=== PATIENT | male | born 1965 | race Hispanic/Latino ===

== ENCOUNTER 2018-11-15 10:09 | Outpatient (CLI) | payer BC ==
--- NOTE | 2018-11-15 11:12 | XRay Report ---
RIGHT KNEE, 4 VIEWS INDICATION: RIGHT KNEE PAIN. COMPARISON: None. IMPRESSION: There is moderate medial compartment joint space narrowing and minimal tibial spine spurr ing. There is relative sparing of the lateral compartment and patellofemoral space. No evidence for f racture, bone lesion or large osteochondral defect. Small joint effusion is suspected on the lateral image. Signer Name: Jose Ramon Rodriguez Jr, MD Signed: 11/15/2018 11:07 AM Workstation Name: [id number]
== END 2018-11-15 10:10 | disposition home or self-care (01) ==
LOC: SPVIMAG 10:09
PROVIDERS: ATTEND Internal Medicine
DX: M25.561 Pain in right knee (principal)